=== PATIENT | female | born 1995 | race African-American/Black ===

== ENCOUNTER 2021-04-10 13:39 | Emergency (ER) | payer MEDICAID, MEDICARE ==
[~2021-04-10] VITALS: Ht 160 cm; Wt 72.7 kg
--- NOTE | 2021-04-10 14:02 | PHYS DOC ---
General Adult HPI: HPI: Patient is a 25-year-old female coming in for right lower extremity pain started earlier today. Patient denies any injury or rolling her foot at all. Patient states that it feels like "[id number]". Denies any prior history of injury to the foot. Denies any back pain. Patient has lower extremity edema th at comes and goes. Patient is a poor historian. Patient states both cigarettes but denies any other medical history. Review of Systems: Review of Systems: All other systems within normal limits except for as noted in the HPI Physical Exam: PE: Constitutional: Well developed, well nourished, no acute distress, non-toxic appearance. [] HENT: Normocephalic, atraumatic, bilateral external ears normal, nose normal. [] Eyes: PERRLA, conjunctiva normal, no discharge. [] Neck: No rigidity, supple, no stridor. [] Cardiovascular: Regular rate and rhythm, brisk cap refill [] Lungs & Thorax: Non labored symmetric respirations, no tachypnea or respiratory distress [] Abdomen: Soft, nondistended. Skin: Warm, dry, no erythema, no rash. [] Back: Unremarkable Extremities: No deformities, range of motion grossly intact, bilateral pitting lower extremity edema [] Neurologic: Alert and oriented X 3, no focal deficits noted. [] Psychologic: Affect normal, judgement normal, mood normal. [] EKG: EKG: [] Radiology/Procedures: Radiology/Procedures: [address] [address] IMAGING REPORT Signed PATIENT: KERVIN HESS DACCOUNT: [id number] : 1995 LOCATION: ER AGE: 25 SEX: F EXAM STATUS: REG ER ORD. PHYSICIAN: SHEFALI TAPIA MD REASON: pain PROCEDURE: TIBIA FIBULA RIGHT XR RT TIBIA+FIBULA History: Reason: pain / Spl. Instructions: / History: Technique: 2 views right tibia and fibula. Comparison: None. Findings: Normal alignment. No acute fracture. Impression: 1. No acute osseous abnormality. Electronically signed by: Jose Larry DO (04/10/2021 3:09 PM) [id number] DICTATED AND SIGNED BY: JOSE LARRY DO DATE: 04/10/21 1507 CC: SHEFALI TAPIA MD; PCP,UNKNOWN ~MTH0 0 [] Heart Score: C/O Chest Pain: No Risk Factors: Risk Factors: DM, Current or recent (<one month) smoker, HTN, HLP, family history of CAD, obesity. Risk Scores: Score 0 - 3: 2.5% MACE over next 6 weeks - Discharge Home Score 4 - 6: 20.3% MACE over next 6 weeks - Admit for Clinical Observation Score 7 - 10: 72.7% MACE over next 6 weeks - Early Invasive Strategies Course & Med Decision Making: Course & Med Decision Making Patient symptoms along L5 dermatome on right lower extremity. Patient does have some paraspinal tenderness around L5. Likely nerve impingement secondary to being wheelchair-bound. Dragon Disclaimer: Dragon Disclaimer: This electronic medical record was generated, in whole or in part, using a voice recognition dictation system. Departure Departure: Impression: Primary Impression: Right leg pain Disposition: HOME / SELF CARE / HOMELESS Condition: STABLE Referrals: PCP,UNKNOWN (PCP) Patient Instructions: Radicular Pain Scripts Hydrocodone Bit/Acetaminophen (HYDROCODONE-APAP 5-325 ) 1 Each Tablet 1 TAB PO PRN Q6HRS PRN for PAIN for 5 Days, #10 TAB 0 Refills Caution: this medication can make you drowsy. Do not drive or operate heavy machinery when using this medication. Prov: SHEFALI TAPIA MD 04/10/21 SHEFALI TAPIA MD Apr 10, 2021 14:02
[2021-04-10 14:54] VITALS: BP 149/89
[2021-04-10 15:07] LABS: BASO % 1 % (0-3); EOS # 0.1 x10^3/uL (0.0-0.7); EOS % 1 % (0-3); HEMATOCRIT 38.4 % (36.0-47.0); HEMOGLOBIN 13.1 g/dL (12.0-15.5); LYMPH % 42 % (24-48); MEAN CORPUSCULAR HEMOGLOBIN 32 pg (25-35); MEAN CORPUSCULAR HGB CONC 34 g/dL (31-37); MEAN CORPUSCULAR VOLUME 93 fL (79-100); MONO # 0.4 x10^3/uL (0.0-1.1); MONO % 9 % (0-9); NEUT # 2.2 x10^3uL (1.8-7.7); NEUT % 48 % (31-73); PLATELET COUNT 343 x10^3/uL (140-400); RED BLOOD COUNT 4.15 x10^6/uL (3.50-5.40); RED CELL DISTRIBUTION WIDTH 13.4 % (11.5-14.5); WHITE BLOOD COUNT 4.7 x10^3/uL (4.0-11.0)
--- NOTE | 2021-04-10 15:09 | RAD ---
XR FOOT_RIGHT 3 VIEWS History: Reason: pain / Spl. Instructions: / History: Technique: 3 views right foot Comparison: None. Findings: Dorsal foot soft tissue swelling. No dislocation. No acute fracture. Impression: 1. No acute osseous abnormality. 2. Dorsal foot soft tissue swelling. Electronically signed by: Royer Cooper DO (04/10/2021 3:07 PM) [id number]
--- NOTE | 2021-04-10 15:11 | RAD ---
XR RT TIBIA+FIBULA History: Reason: pain / Spl. Instructions: / History: Technique: 2 views right tibia and fibula. Comparison: None. Findings: Normal alignment. No acute fracture. Impression: 1. No acute osseous abnormality. Electronically signed by: Royer Cooper DO (04/10/2021 3:09 PM) [id number]
[2021-04-10 15:44] LABS: CALCIUM 8.6 mg/dL (8.5-10.1); CREATININE 0.6 mg/dL (0.6-1.0); GFR 149.9; POTASSIUM 3.7 mmol/L (3.5-5.1)
[2021-04-10 15:57] LABS: ALBUMIN 3.8 g/dL (3.4-5.0); ALBUMIN/GLOBULIN RATIO 0.9 (1.0-1.7); TOTAL BILIRUBIN 0.2 mg/dL (0.2-1.0); TOTAL PROTEIN 8.1 g/dL (6.4-8.2)
[2021-04-10] MEDS ORDERED: HYDR-2155 PO (16:01)
[2021-04-10 16:35] LABS: BACTERIA,URINE FEW /HPF (0-FEW); BILIRUBIN,URINE NEG (NEG); CLARITY,URINE HAZY; COLOR,URINE AMBER; GLUCOSE,URINE NEG (NEG); NITRITE,URINE NEG (NEG); RBC,URINE OCC /HPF (0-2); SQUAMOUS EPITHELIAL CELL,UR FEW /LPF
== END 2021-04-10 16:30 | disposition home or self-care (01) ==
LOC: ER 13:39
DX: M79.604 Pain in right leg (principal)
CPT/HCPCS: 36415; 73590; 73630; 80053; 81001; 83735; 83880; 85025; 96374; 99284; J3010